=== PATIENT | female | born 1985 | race Caucasian/White ===

== ENCOUNTER 2016-12-11 16:00 | Emergency (ER) | payer BC ==
[2016-12-11 15:38] LABS: URINE SOURCE CLEAN CATCH
[2016-12-11 15:45] LABS: BASOPHIL% 0.3 % (0-2.5); EOSINOPHIL% 0.2 % (0.0-7.0); HEMATOCRIT 47.1 % (35.0-45.0); HEMOGLOBIN 15.6 gm/dL (12.0-16.0); LYMPHOCYTE# 0.8 X10e3 (1.0-3.5); LYMPHOCYTE% 12.6 % (17.0-45.0); MEAN CELL VOLUME 85.8 FL (83-96); MEAN CORPUSCULAR HEMOGLOBIN 28.3 PG (28-34); MEAN PLATELET VOLUME 8.7 FL (6.5-11.5); MONOCYTE# 0.3 X10e3 (0-1.0); MONOCYTE% 4.4 % (3.0-12.0); NEUTROPHIL% 82.5 % (40-75); PLATELET COUNT 180 X10e3 (140-420); RED CELL DISTRIBUTION WIDTH 15.4 % (11.0-15.5)
[2016-12-11 15:46] LABS: ACETONE, SERUM 0 MG/DL (0-0); BETA-HCG SCREEN-PREGNANCY NEG
[2016-12-11 15:53] LABS: ALBUMIN SERUM 4.5 g/dL (3.5-5.0); BILIRUBIN, DIRECT 0.1 mg/dL (0.0-0.2); BILIRUBIN,INDIRECT 0.5 mg/dL (0.0-0.9); BILIRUBIN,TOTAL 0.6 mg/dL (0.2-2.0); BUN/CREATININE RATIO 17.14; CALCIUM SERUM 8.8 mg/dL (8.4-10.2); CREATININE SERUM 0.7 mg/dL (0.6-1.4); GLOM FILT RATE Estimated 115.5 mL/min (>60); POTASSIUM 3.7 mmol/L (3.5-5.1); PROTEIN TOTAL SERUM 7.9 g/dL (6.0-8.3)
[2016-12-11 15:54] LABS: URINE APPEARANCE HAZY; URINE BLOOD TRACE-INTACT (NEG); URINE COLOR YELLOW; URINE GLUCOSE NEG (NORM); URINE LEUKOCYTE ESTERASE NEG (NEG); URINE NITRATE NEG (NEG); URINE PROTEIN NEG (NEG); URINE SPECIFIC GRAVITY >=1.030 (1.003-1.035); URINE UROBILINOGEN 0.2 MG/DL (NORM)
[2016-12-11 16:00] LABS: URINE KETONE 3+ (NEG)
[~2016-12-11 16:00] MED LIST: CLARITIN D PO; CRANBERRY200 MG PO; FLEXERIL PO; HUMALOG100 U/ML; KETOPROFEN PO; LANTUS100 U/ML; MULTI-DAY VITAM1 TAB PO; NOVOLOG100 U/ML SUBQ; NOVOLOG100 UNIT/1; VICODIN 5/500 T1 TAB PO; ZOFRAN ODT4 MG PO; [UNRECOGNIZED DRUG - OTHER]
[2016-12-11 16:03] LABS: DIFF IND NO
[2016-12-11 16:14] LABS: MICRO INDICATED? YES; URINE BILIRUBIN NEG (NEG)
[2016-12-11 16:15] LABS: CULTURE INDICATED? YES; URINE BACTERIA 3+ (NEG)
[2016-12-11 16:16] LABS: URINE MUCUS PRESENT; URINE SQUAMOUS EPITHELIAL CELL MANY /[HPF]
== END 2016-12-11 17:29 | disposition home or self-care (01) ==
LOC: SED 16:00
PROVIDERS: Emergency Medicine
DX: K29.70 Gastritis, unspecified, without bleeding (principal); E10.10 Type 1 diabetes mellitus with ketoacidosis without coma
CPT/HCPCS: 36415; 80048; 80076; 81003; 82010; 83690; 84703; 85025; 87086; 96361; 96374; 96375; 99284; J2405